=== PATIENT | female | born 1935 | race Caucasian/White ===

== ENCOUNTER 2017-05-05 09:17 | Emergency (ER) | payer MEDICARE, BC ==
[2017-05-05] MEDS ORDERED: NS 0.9% 1000 ML* 1,000 ML IV ONE (09:53)
--- NOTE | 2017-05-05 10:24 | RAD ---
HISTORY: Near syncope COMPARISONS: None TECHNIQUE: Multiple contiguous axial CT scans were obtained of the head without intravenous contrast. FINDINGS: HEMORRHAGE/INFARCT: There is no hemorrhage or acute infarct. MASSES/SHIFT: There is no mass or shift. EXTRA-AXIAL SPACES: There are no extra-axial fluid collections. SULCI AND VENTRICLES: There is diffuse and proportional enlargement of the sulci and ventricles. 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 There is mild hypoattenuation of the periventricular and subcortical white matter. BRAINSTEM: There are no focal parenchymal abnormalities. CEREBELLUM: There are no focal parenchymal abnormalities. VESSELS: The vessels are grossly normal. PARANASAL SINUSES: The paranasal sinuses are clear. ORBITS: The orbits are unremarkable. BONES AND SOFT TISSUE: No bone or soft tissue abnormalities are noted. OTHER: None IMPRESSION: NO ACUTE INTRACRANIAL PATHOLOGY. DIFFUSE INVOLUTIONAL CHANGE WITH CHRONIC SMALL VESSEL ISCHEMIC CHANGES.
--- NOTE | 2017-05-05 10:40 | RAD ---
HISTORY: Near syncope COMPARISONS: June 08, 2016 VIEWS: 4: Frontal dual-energy and lateral views of the chest. FINDINGS: CARDIOMEDIASTINAL SILHOUETTE: The cardiomediastinal silhouette is normal. LASHAWN: The lashawn are normal. PLEURA: The costophrenic angles are sharp. No pleural abnormalities are noted. LUNG PARENCHYMA: There is hyperinflation with flattening of the diaphragm and expansion of the AP diameter of the chest. ABDOMEN: The upper abdomen is clear. There is no subphrenic gas. BONES AND SOFT TISSUES: No bone or soft tissue abnormalities are noted. OTHER: None. IMPRESSION: NO ACTIVE CARDIOPULMONARY DISEASE.
[2017-05-05 10:49] LABS: Hematocrit 41 % (35-47); Hemoglobin 13.5 g/dl (12.0-16.0); Mean Corpuscular HGB Conc 33 g/dl (31-36); Mean Corpuscular Hemoglobin 31 pg (27-31); Mean Corpuscular Volume 93 fL (80-97); Mean Platelet Volume 12 um3 (7.4-10.4); Red Blood Count 4.38 10^6/ul (4.0-5.4); Red Cell Distribution Width 15 % (10.5-15); White Blood Count 6.6 10^3/ul (3.5-10.8)
[2017-05-05 11:09] LABS: Albumin 3.5 g/dL (3.2-5.2); BUN/Creatinine Ratio 18.8 (8-20); Calcium 9.4 mg/dL (8.6-10.3); EGFR African American 59.7 (>60); EGFR Non-African American 46.5 (>60); Globulin 3.2 g/dL (2-4); Magnesium 2.1 mg/dL (1.9-2.7); Potassium 4.1 mmol/L (3.5-5.0); Total Protein 6.7 g/dL (6.4-8.9)
[2017-05-05 11:10] LABS: B Type Natriuretic Peptide 156 pg/mL; Total Bilirubin 0.4 mg/dL (0.2-1.0)
[2017-05-05 11:49] LABS: TSH (Thyroid Stimulating Horm) 2.2 mcIU/mL (0.34-5.60)
[2017-05-05 13:05] VITALS: BP 123/75
--- NOTE | 2017-05-05 18:36 | ED ---
Sejal Gaming Alfonso, scribed for Fadi Ontiveros MD on 05/05/17 at 0955 . Dizziness - HPI Summary HPI Summary: This patient is an 81 year old F BIBA to [facility] accompanied by daughter with a chief complaint of lightheaded dizziness since this morning. The patient rates the pain 0/10 in severity. Symptoms aggravated by not having breakfast. Symptoms alleviated by rest. Patient reports nausea, unsteady gait, and near syncope (daughter states she just slouched down I held her the whole time.) Patient denies LOC, CP, palpitations, headache, and blurred vision. - History Of Current Complaint Chief Complaint: EDSyncope Stated Complaint: NEAR SYNCOPE Time Seen by Provider: 05/05/17 09:48 Hx Obtained From: Patient Timing: Constant Character: Lightheaded Aggravating Factor(s): Other - by not having breakfast. Alleviating Factor(s): Rest Associated Signs And Symptoms: Positive: Other: - nausea, unsteady gait, and near syncope (daughter states she just slouched down I held her the whole time. ) Patient denies LOC, CP, palpitations, headache, and blurred vision. - Allergies/Home Medications Allergies/Adverse Reactions: Allergies Allergy/AdvReac Type Severity Reaction Status Date / Time No Known Allergies Allergy Verified 04/20/17 14:09 Home Medications: Home Medications Apixaban* [Eliquis*] 2.5 mg PO BID 05/05/17 [History Confirmed 05/05/17] Aspirin EC Low Dose* [Ecotrin EC Low Dose 81 MG*] 81 mg PO DAILY 05/05/17 [ History Confirmed 05/05/17] Atorvastatin* [Lipitor*] 10 mg PO QPM 05/05/17 [History Confirmed 05/05/17] QUEtiapine TAB* [SEROquel TAB*] 200 mg PO BEDTIME 05/05/17 [History Confirmed ] cloNIDine TAB* [Catapres 0.1 MG TAB*] 0.1 mg PO QAM 05/05/17 [History Confirmed 05/05/17] cloNIDine TAB* [Catapres 0.1 MG TAB*] 0.2 mg PO BEDTIME 05/05/17 [History Confirmed 05/05/17] PMH/Surg Hx/FS Hx/Imm Hx Cardiovascular History: Reports: Hx Hypertension - IN PAST Sensory History: Denies: Hx Legally Blind Opthamlomology History: Denies: Hx Legally Blind EENT History: Denies: Hx Deafness Neurological History: Reports: Hx Dementia, Other Neuro Impairments/Disorders - Secaondary Parkinsonism - Surgical History Surgery Procedure, Year, and Place: goiter ,bunions Infectious Disease History: No Infectious Disease History: Denies: History Other Infectious Disease, Traveled Outside the [place] in Last 30 Days - Family History Known Family History: Positive: Hypertension - Social History Alcohol Use: None Hx Substance Use: No Substance Use Type: Reports: None Hx Tobacco Use: No Smoking Status (MU): Never Smoked Tobacco Have You Smoked in the Last Year: No Review of Systems Negative: Fever Negative: Blurred Vision Negative: Palpitations, Chest Pain Positive: Nausea Neurological: Other - Lightheaded dizziness, unsteady gait, and near syncope ( daughter states she just slouched down I held her the whole time.); Negative LOC, and headache All Other Systems Reviewed And Are Negative: Yes Physical Exam - Summary Physical Exam Summary: VITAL SIGNS: Reviewed. GENERAL: Patient is an elderly and nourished female who is lying comfortable in the stretcher. Patient is not in any acute respiratory distress. HEAD AND FACE: No signs of trauma. No ecchymosis, hematomas or skull depressions. No sinus tenderness. EYES: PERRLA, EOMI x 2, No injected conjunctiva, no nystagmus. EARS: Hearing grossly intact. Ear canals and tympanic membranes are within normal limits. MOUTH: Oropharynx within normal limits. NECK: Supple, trachea is midline, no adenopathy, no JVD, no carotid bruit, no c- spine tenderness, neck with full ROM. CHEST: Symmetric, no tenderness at palpation LUNGS: Clear to auscultation bilaterally. No wheezing or crackles. CVS: Regular rate and rhythm, S1 and S2 present, no murmurs or gallops appreciated. ABDOMEN: Soft, non-tender. No signs of distention. No rebound no guarding, and no masses palpated. Bowel sounds are normal. EXTREMITIES: FROM in all major joints, no edema, no cyanosis or clubbing. NEURO: Alert and oriented x 3. No acute neurological deficits. Speech is normal and follows commands. SKIN: Dry and warm Triage Information Reviewed: Yes Vital Signs On Initial Exam: Initial Vitals Temp Pulse Resp BP Pulse Ox 97.5 F 62 11 107/60 95 05/05/17 09:34 05/05/17 09:34 05/05/17 09:34 05/05/17 09:34 05/05/17 09:34 Vital Signs Reviewed: Yes - [place] Coma Scale Best Eye Response: 4 - Spontaneous Best Motor Response: 6 - Obeys Commands Best Verbal Response: 5 - Oriented Coma Scale Total: 15 Diagnostics - Vital Signs Vital Signs Temp Pulse Resp BP Pulse Ox 05/05/17 09:38 64 11 95 05/05/17 09:36 107/60 05/05/17 09:34 97.5 F 62 11 107/60 95 - Laboratory Lab Results: Lab Results 05/05/17 05/05/17 05/05/17 Range/Units 10:37 10:37 10:37 WBC 6.6 (3.5-10.8) 10^3/ul RBC 4.38 (4.0-5.4) 10^6/ul Hgb 13.5 (12.0-16.0) g/dl Hct 41 (35-47) % MCV 93 (80-97) fL MCH 31 (27-31) pg MCHC 33 (31-36) g/dl RDW 15 (10.5-15) % Plt Count 128 L (150-450) 10^3/ul MPV 12 H (7.4-10.4) um3 Neut % (Auto) 79.2 (38-83) % Lymph % (Auto) 13.8 L (25-47) % [place] % (Auto) 4.9 (1-9) % Eos % (Auto) 1.3 (0-6) % Baso % (Auto) 0.8 (0-2) % Absolute Neuts (auto) 5.2 (1.5-7.7) 10^3/ul Absolute Lymphs (auto) 0.9 L (1.0-4.8) 10^3/ul Absolute Monos (auto) 0.3 (0-0.8) 10^3/ul Absolute Eos (auto) 0.1 (0-0.6) 10^3/ul Absolute Basos (auto) 0.1 (0-0.2) 10^3/ul Absolute Nucleated RBC 0 10^3/ul Nucleated RBC % 0 Sodium 139 (133-145) mmol/L Potassium 4.1 (3.5-5.0) mmol/L Chloride 107 (101-111) mmol/L Carbon Dioxide 22 (22-32) mmol/L Anion Gap 10 (2-11) mmol/L BUN 21 (6-24) mg/dL Creatinine 1.12 H (0.51-0.95) mg/dL Est GFR ( Amer) 59.7 (>60) Est GFR (Non-Af Amer) 46.5 (>60) BUN/Creatinine Ratio 18.8 (8-20) Glucose 109 H (70-100) mg/dL Lactic Acid (0.5-2.0) mmol/L Calcium 9.4 (8.6-10.3) mg/dL Magnesium 2.1 (1.9-2.7) mg/dL Total Bilirubin 0.40 (0.2-1.0) mg/dL AST 18 (13-39) U/L ALT 11 (7-52) U/L Alkaline Phosphatase 96 (34-104) U/L Ammonia TNP Troponin I 0.00 (<0.04) ng/mL B-Natriuretic Peptide 156 H ( - 100) pg/mL Total Protein 6.7 (6.4-8.9) g/dL Albumin 3.5 (3.2-5.2) g/dL Globulin 3.2 (2-4) g/dL Albumin/Globulin Ratio 1.1 (1-3) TSH 2.20 (0.34-5.60) mcIU/mL 05/05/17 05/05/17 Range/Units 10:37 11:55 WBC (3.5-10.8) 10^3/ul RBC (4.0-5.4) 10^6/ul Hgb (12.0-16.0) g/dl Hct (35-47) % MCV (80-97) fL MCH (27-31) pg MCHC (31-36) g/dl RDW (10.5-15) % Plt Count (150-450) 10^3/ul MPV (7.4-10.4) um3 Neut % (Auto) (38-83) % Lymph % (Auto) (25-47) % [place] % (Auto) (1-9) % Eos % (Auto) (0-6) % Baso % (Auto) (0-2) % Absolute Neuts (auto) (1.5-7.7) 10^3/ul Absolute Lymphs (auto) (1.0-4.8) 10^3/ul Absolute Monos (auto) (0-0.8) 10^3/ul Absolute Eos (auto) (0-0.6) 10^3/ul Absolute Basos (auto) (0-0.2) 10^3/ul Absolute Nucleated RBC 10^3/ul Nucleated RBC % Sodium (133-145) mmol/L Potassium (3.5-5.0) mmol/L Chloride (101-111) mmol/L Carbon Dioxide (22-32) mmol/L Anion Gap (2-11) mmol/L BUN (6-24) mg/dL Creatinine (0.51-0.95) mg/dL Est GFR ( Amer) (>60) Est GFR (Non-Af Amer) (>60) BUN/Creatinine Ratio (8-20) Glucose (70-100) mg/dL Lactic Acid 2.6 H* (0.5-2.0) mmol/L Calcium (8.6-10.3) mg/dL Magnesium (1.9-2.7) mg/dL Total Bilirubin (0.2-1.0) mg/dL AST (13-39) U/L ALT (7-52) U/L Alkaline Phosphatase (34-104) U/L Ammonia 31 Troponin I (<0.04) ng/mL B-Natriuretic Peptide ( - 100) pg/mL Total Protein (6.4-8.9) g/dL Albumin (3.2-5.2) g/dL Globulin (2-4) g/dL Albumin/Globulin Ratio (1-3) TSH (0.34-5.60) mcIU/mL Result Diagrams: 05/05/17 10:37 05/05/17 10:37 Lab Statement: Any lab studies that have been ordered have been reviewed, and results considered in the medical decision making process. - Radiology CXR Radiology Interpretation Completed By: Radiologist - NO ACTIVE CARDIOPULMONARY DISEASE. ED physician has reviewed this radiology report and agrees. - CT Brain CT Interpretation Completed By: Radiologist - NO ACUTE INTRACRANIAL PATHOLOGY. DIFFUSE INVOLUTIONAL CHANGE WITH CHRONIC SMALL VESSEL ISCHEMIC CHANGES. ED physician has reviewed this radiology report and agrees. - EKG 1020 Cardiac Rate: Bradycardia EKG Rhythm: Sinus Bradycardia - BPM 57 EKG Interpretation: Low voltage, nml axis, and T wave inversions in V2-V6. Dizzy Course/Dx - Course Assessment/Plan: This patient is an 81 year old F BIBA to [facility] accompanied by daughter with a chief complaint of lightheaded dizziness since this morning. The patient rates the pain 0/10 in severity. Symptoms aggravated by not having breakfast. Symptoms alleviated by rest. Patient reports nausea, unsteady gait, and near syncope (daughter states she just slouched down I held her the whole time.) Patient denies LOC, CP, palpitations, headache, and blurred vision. An EKG reveals Sinus bradycardia at 57 BPM with Low voltage, nml axis, and T wave inversions in V2-V6. CXR reveals, per radiologist, NO ACTIVE CARDIOPULMONARY DISEASE. ED physician has reviewed this radiology report and agrees. CT Brain reveals, per radiologist, NO ACUTE INTRACRANIAL PATHOLOGY. DIFFUSE INVOLUTIONAL CHANGE WITH CHRONIC SMALL VESSEL ISCHEMIC CHANGES. ED physician has reviewed this radiology report and agrees. Test results with no significant abnormalities except for Creatinine of 1.1, lactic acid of 2.6, and BNP 156. In the ED course the patient was given IV fluids. The patient felt better, and was eating and drinking. The patient was ambulated and orthostatic vital signs were normal. I believe the symptoms are secondary to a vasovagal episode since she is feeling better and did not have LOC. Therefore, the patient will be discharged with follow up from PCP. The patient is agreeable with this plan. The patient is hemodynamically stable, alert and oriented x3. - Diagnoses Differential Diagnosis/HQI/PQRI: Benign Paroxysmal Positional Vertigo, CVA, Dysrhythmia, Medication Reaction, Transient Ischemic Attack, Vasovagal Reaction Provider Diagnoses: Near syncope, Fainting Discharge - Discharge Plan Condition: Stable Disposition: HOME Patient Education Materials: Near Syncope (ED) Referrals: Jordana Schroeder MD [Primary Care Provider] - 3 Days Additional Instructions: RETURN TO THE EMERGENCY DEPARTMENT FOR CHANGING OR WORSENING SYMPTOMS. The documentation as recorded by the Sejal aguilar Alfonso accurately reflects the service I personally performed and the decisions made by , Fadi Ontiveros MD.
== END 2017-05-05 13:20 | disposition home or self-care (01) ==
LOC: ED 09:17
DX: R55 Syncope and collapse (principal); R11.0 Nausea; R26.81 Unsteadiness on feet; I10 Essential (primary) hypertension; R00.1 Bradycardia, unspecified; Z79.82 Long term (current) use of aspirin
CPT/HCPCS: 36415; 70450; 71020; 80053; 82140; 83605; 83735; 83880; 84443; 84484; 85025; 93005; 96360; 99283

== ENCOUNTER 2017-08-08 09:54 | Emergency (ER) | payer MEDICARE, BC ==
--- OUTSIDE RECORDS SUMMARY | 2017-08-08 10:03 | XMS REPORT ---
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 SEE RESULT BELOW Name: NISREEN OSHEA : [address]: Ban Moe MD Acct: [id number] Unit: [id number] AGE: 80 Location: [facility] Re06/05/16 SEX: F Status: DEP ER SPEC: [id number] DANIEL: 06/05/16-[address] [facility] [address]: Charley Mcfarlane NP REQ: [id number] RECD: 06/05/16 STATUS: JUAN R DOTSON DR: Ban Schroeder MD _ SOURCE: URINE SPDESC: ORDERED: Urine Culture COMMENTS: [id number] Procedure Result Reported Site Urine Culture Final 06/06/16- 1703 ML No growth of clinically significant organisms * ML - MAIN LAB ([facility]) . END OF REPORT * ML=Testing performed at Main Lab DEPARTMENT OF PATHOLOGY, [address] [place] [id number] Giuseppe Newman M.D. Director [facility] # [id number] 26 Because ethnic data is not always readily available, this report includes an eGFR for both -Americans and non- Americans. The National Kidney Disease Education Program (NKDEP) does not endorse the use of the MDRD equation for patients that are not between the ages of 18 and 70, are , have extremes of body size, muscle mass, or nutritional status, or are non- or non-. According to the National Kidney Foundation, irrespective of diagnosis, the stage of the disease is based on the level of kidney function: Stage Description GFR(mL/min/1.73 m(2)) 1 Kidney damage with normal or decreased GFR 90 2 Kidney damage with mild decrease in GFR 60-89 3 Moderate decrease in GFR 30-59 4 Severe decrease in GFR 15-29 5 Kidney failure <15 (or dialysis) 27 Because ethnic data is not always readily available, this report includes an eGFR for both -Americans and non- Americans. The National Kidney Disease Education Program (NKDEP) does not endorse the use of the MDRD equation for patients that are not between the ages of 18 and 70, are , have extremes of body size, muscle mass, or nutritional status, or are non- or non-. According to the National Kidney Foundation, irrespective of diagnosis, the stage of the disease is based on the level of kidney function: Stage Description GFR(mL/min/1.73 m(2)) 1 Kidney damage with normal or decreased GFR 90 2 Kidney damage with mild decrease in GFR 60-89 3 Moderate decrease in GFR 30-59 4 Severe decrease in GFR 15-29 5 Kidney failure <15 (or dialysis) 28 ADDITIONAL INFORMATION This is a qualitative test. The TB antigen IU/mL value is required for documentation on certain government reporting forms (e.g., Form I-693), but this value should not be used to monitor disease progression or response to therapy. Diagnosing or excluding tuberculosis disease, and assessing the probability of LTBI, require a combination of epidemiological, historical, medical, and diagnostic findings that should be taken into account when interpreting QuantiFERON-TB results. Test Performed by: [place] [address] [employer] Charger: Chuck Ortega II, M.D., Ph.D. 29 ADDITIONAL INFORMATION This is a qualitative test. The TB antigen IU/mL value is required for documentation on certain government reporting forms (e.g., Form I-693), but this value should not be used to monitor disease progression or response to therapy. Diagnosing or excluding tuberculosis disease, and assessing the probability of LTBI, require a combination of epidemiological, historical, medical, and diagnostic findings that should be taken into account when interpreting QuantiFERON-TB results. Test Performed by: [place] [address] [employer]ger: Chuck Ortega II, M.D., Ph.D. 30 FASTING 12 HOUR 31 Desirable <150 Borderline high 150-199 High 200-499 Very High >500 32 Desirable <200 Borderline high 200-239 High >239 33 Low <40 Desirable: 40-60 High: >60 34 Desirable: <100 mg/dL Near Optimal: 100-129 mg/dL Borderline High: 130-159 mg/dL High: 160-189 mg/dL Very High: >189 mg/dL 35 Normal Range 180 to 914 Indeterminate Range 145 to 180 Deficient Range <145 36 FASTING 37 Because ethnic data is not always readily available, this report includes an eGFR for both -Americans and non- Americans. The National Kidney Disease Education Program (NKDEP) does not endorse the use of the MDRD equation for patients that are not between the ages of 18 and 70, are , have extremes of body size, muscle mass, or nutritional status, or are non- or non-. According to the National Kidney Foundation, irrespective of diagnosis, the stage of the disease is based on the level of kidney function: Stage Description GFR(mL/min/1.73 m(2)) 1 Kidney damage with normal or decreased GFR 90 2 Kidney damage with mild decrease in GFR 60-89 3 Moderate decrease in GFR 30-59 4 Severe decrease in GFR 15-29 5 Kidney failure <15 (or dialysis) 38 >100 to <200 pg/mL: likely compensated congestive heart failure (CHF) 200 to 400 pg/mL: likely moderate CHF >400 pg/mL: likely moderate to severe CHF 39 FASTING Procedures Date CPT Code Description Status 06/25/2017 14520 EKG Tracing & Interpretation Completed 06/03/2017 56122 EKG Tracing & Interpretation Completed 08/13/2016 74583 EKG Tracing & Interpretation Completed 11/22/2015 07197 EKG Tracing & Interpretation Completed 10/20/2015 62041 Treadmill Interp/Report Only Completed 10/20/2015 23891 Stress Test Supervsn W/Out I/R Completed 06/20/2015 69506 ECHO Transthoracic, Real-Time 2D With Doppler And Color Completed Flow 06/06/2015 18710 ECHO Stress Test Incl Perf Contiuous ekg Monitoring Completed W/Phys Superv 05/30/2015 31827 EKG Tracing & Interpretation Completed 08/16/2014 Mammogram Completed Encounters Type Date Location Provider CPT E/M Dx Office Visit 08/01/2017 10:00a [facility] [place] [address] F03.90 Z86.73 Office Visit 06/03/2017 9:00a [facility] Kodi Pearson, 33577 E78.00 M.DEyal R42 I10 I65.23 R00.1 I45.10 Office Visit 04/30/2017 8:30a [facility] Jodrana Schroeder, 43354 S80.11Prince Patricia M.D. Z23 Office Visit 01/14/2017 10:30a [facility] [place] [address] Z86.73 F03.90 Office Visit 08/13/2016 9:20a [facility] Kodi Pearson, 62984 F02.81 M.DEyal I10 E78.5 I63.9 Office Visit 07/24/2016 10:30a [facility] [place] [address] F03.90 Services [facility] Z86.73 Z79.01 Office Visit 06/09/2016 7:40a [facility] Marcial Pham, 54560 R50.9 Hospitalists Jesusita,FACP I10 Office Visit 06/08/2016 7:39a [facility], Sterling Henok, 49817 R50.9 Hospitalists N.PEyal E78.5 I10 Office Visit 05/27/2016 9:10a [facility] Jordana Schroeder M.D. 60356 E04.9 - [place] Z23 E53.8 R29.890 Z86.73 Z02.9 F03.90 Office Visit 01/25/2016 9:00a [facility] DORY Crockett 34491FTI I10 I70.213 E78.5 Office Visit 11/22/2015 11:00a [facility] Kodi Pearson M.D. 95602 I10 I70.213 F03.90 G47.9 M79.1 Office Visit 07/28/2015 9:30a [facility] [place] [address] F03.90 Z86.73 I65.22 Office Visit 07/26/2015 8:50a [facility] Jordana Schroeder, 26834 F03.90 - Ana Maria Mc Z79.899 Z02.9 Z13.820 Office Visit 05/30/2015 2:30p [facility] Kodi Pearson M.D. 98053 E78.5 I73.9 I35.0 I65.23 R06.02 I34.0 Office Visit 05/16/2015 1:00p [facility] [place] [address] F03.90 [facility] G21.9 I65.23 Z86.73 Office Visit 04/26/2015 9:50a [facility] Jordana Schroeder, 50133 Z86.73 - Ana Maria Mc G21.9 F02.80 E78.5 Z23 I35.1 Office Visit 03/30/2015 2:30p [facility] Jordana Schroeder M.D. 70942 F32.3 - [place] Plan of Care Future Appointment(s):08/14/2017 10:30 am - Nurse Visit cc at [facility]08/13/2017 12:00 pm - Nurse Visit cc at [facility]02/17/2018 9 :10 am - Jordana Schroeder M.D. at [facility] - Gofkhznzl14/16/2018 - April Cedeño MDF03.90 Unspecified dementia without behavioral disturbanceFollow up:: 6 MONTHS with KingRecommendations:The dementia is getting worse. I am glad she is not wandering out of the house or having any problems with her balance, but this can change in the future. I would recommend beginning to think about whether you are able to get more help in the home, or if you might need to think about a dementia care unit in the future.Z86.73 Prsnl hx of TIA ( TIA), and cereb infrc w/o resid deficitsRecommendations:Repeat blood pressure was 130/82 so better than when initially checked. Would consider getting a home blood pressure cuff and checking it at home since clonidine is changing.
[2017-08-08 10:48] LABS: ABS Basophils 0.1 10^3/ul (0-0.2); ABS Eosinophils 0.1 10^3/ul (0-0.6); ABS Lymphocytes 1.1 10^3/ul (1.0-4.8); ABS Monocytes 0.5 10^3/ul (0-0.8); ABS Neutrophils 5.2 10^3/ul (1.5-7.7); ABS Nucleated RBC 0 10^3/ul; Eosinophil % 1.2 % (0-6); Hematocrit 40 % (35-47); Hemoglobin 13.2 g/dl (12.0-16.0); Lymphocyte % 16.3 % (25-47); Mean Corpuscular HGB Conc 33 g/dl (31-36); Mean Corpuscular Hemoglobin 31 pg (27-31); Mean Corpuscular Volume 94 fL (80-97); Mean Platelet Volume 10 um3 (7.4-10.4); Nucleated Red Blood Cells % 0; Platelet Count 161 10^3/ul (150-450); Red Blood Count 4.28 10^6/ul (4.0-5.4); Red Cell Distribution Width 14 % (10.5-15)
[2017-08-08 11:02] LABS: EGFR Non-African American 42.1 (>60)
--- NOTE | 2017-08-08 12:32 | RAD ---
INDICATION: Syncope, anticoagulation. COMPARISON: Comparison is made with a prior CT of the brain from May 05, 2017. TECHNIQUE: Contiguous axial sections of the brain were obtained from the skull base to the vertex without contrast. FINDINGS: The ventricles, cisterns and sulci are enlarged consistent with diffuse atrophy. There are small areas of decreased density in the subcortical and periventricular white matter suggestive of mild chronic small vessel ischemic changes. There is no evidence for hemorrhage. No significant focal osseous abnormality is seen. The visualized portion of the paranasal sinuses and mastoid air cells appear clear. IMPRESSION: NO EVIDENCE FOR ACUTE INTRACRANIAL ABNORMALITY.
[2017-08-08 13:22] VITALS: BP 113/81
--- NOTE | 2017-08-08 20:26 | ED ---
Brian Gaming Stephanie, scribed for Zuleima Lee MD on 08/08/17 at 1122 . Syncope/Near Syncope - HPI Summary HPI Summary: The pt is an 81 y/o F BIBA to the ED with c/o syncopal episode that occurred at 10:09 today. The pt experienced LOC after the daughter gave the pt her evening medication instead of her morning medication at 07:00 today. Pt was given her atorvastatin 10mg that she takes at hs, Eliquis 2.5mg that she takes bid, and quetiapine 200mg that she takes at hs. The pt was at [facility] this morning when she lost consciousness. The pt is alert and oriented upon arrival. The pt is unaware if she experienced head trauma. The pt denies present CP, abd pain, SOB and LE pain. Pt feels back to normal. - History Of Current Complaint Chief Complaint: EDSyncope Time Seen by Provider: 08/08/17 11:36 Hx Obtained From: Patient, Family/Mental Retardation Nurse - daughter Onset/Duration: Sudden Onset - s/p taking the wrong medications, Lasting Hours, Resolved Timing: Intermittent Episode Lasting Context: Witnessed, Loss Of Consciousness Aggravating Factor(s): Other - incorrect medications Alleviating Factor(s): Nothing - Allergies/Home Medications Allergies/Adverse Reactions: Allergies Allergy/AdvReac Type Severity Reaction Status Date / Time No Known Allergies Allergy Verified 04/20/17 14:09 Home Medications: Home Medications Cholecalciferol TAB* [Vitamin D TAB*] 2,000 units PO DAILY 08/08/17 [History Confirmed 08/08/17] PMH/Surg Hx/FS Hx/Imm Hx Endocrine/Hematology History: Reports: Hx Thyroid Disease Cardiovascular History: Reports: Hx Hypertension - IN PAST Sensory History: Denies: Hx Legally Blind, Hx Deafness Opthamlomology History: Denies: Hx Legally Blind Neurological History: Reports: Hx Dementia, Other Neuro Impairments/Disorders - Secaondary Parkinsonism - Surgical History Surgery Procedure, Year, and Place: goiter ,bunions Infectious Disease History: No Infectious Disease History: Denies: History Other Infectious Disease, Traveled Outside the [place] in Last 30 Days - Family History Known Family History: Positive: Hypertension - Social History Alcohol Use: None Hx Substance Use: No Substance Use Type: Reports: None Hx Tobacco Use: No Smoking Status (MU): Never Smoked Tobacco Have You Smoked in the Last Year: No Review of Systems Negative: Fever Negative: Chest Pain Negative: Shortness Of Breath Negative: Abdominal Pain Positive: Other - Negative: LE pain All Other Systems Reviewed And Are Negative: Yes Physical Exam - Summary Physical Exam Summary: Appearance: Ill-appearing, moderate pain distress, Well-nourished Skin: Warm, color reflects adequate perfusion Head: Normal Head/Face inspection Eyes: Conjunctiva clear ENT: Normal inspection Neck: Supple, no nodes, no JVD. Respiratory: Lungs clear, Normal breath sounds, no respiratory distress Cardio: RRR, No murmur, pulses normal, brisk capillary refill Abdomen: soft, nontender Bowel sounds: present Musculoskeletal: Strength Intact/ ROM intact. No calf tenderness. No edema. Neuro: Alert, muscle tone normal, facial symmetry, speech normal, sensory/motor intact Psychological: Normal Triage Information Reviewed: Yes Vital Signs On Initial Exam: Initial Vitals BP 118/58 08/08/17 10:07 Vital Signs Reviewed: Yes Diagnostics - Vital Signs Vital Signs Temp Pulse Resp BP Pulse Ox 08/08/17 10:08 98.1 F 89 16 118/58 97 08/08/17 10:07 118/58 - Laboratory Lab Results: Lab Results 08/08/17 08/08/17 08/08/17 Range/Units 10:40 10:40 10:40 WBC 7.0 (3.5-10.8) 10^3/ul RBC 4.28 (4.0-5.4) 10^6/ul Hgb 13.2 (12.0-16.0) g/dl Hct 40 (35-47) % MCV 94 (80-97) fL MCH 31 (27-31) pg MCHC 33 (31-36) g/dl RDW 14 (10.5-15) % Plt Count 161 (150-450) 10^3/ul MPV 10 (7.4-10.4) um3 Neut % (Auto) 74.4 (38-83) % Lymph % (Auto) 16.3 L (25-47) % Garrett % (Auto) 6.9 (0-7) % Eos % (Auto) 1.2 (0-6) % Baso % (Auto) 1.2 (0-2) % Absolute Neuts (auto) 5.2 (1.5-7.7) 10^3/ul Absolute Lymphs (auto) 1.1 (1.0-4.8) 10^3/ul Absolute Monos (auto) 0.5 (0-0.8) 10^3/ul Absolute Eos (auto) 0.1 (0-0.6) 10^3/ul Absolute Basos (auto) 0.1 (0-0.2) 10^3/ul Absolute Nucleated RBC 0 10^3/ul Nucleated RBC % 0 Sodium 138 (133-145) mmol/L Potassium 4.0 (3.5-5.0) mmol/L Chloride 105 (101-111) mmol/L Carbon Dioxide 25 (22-32) mmol/L Anion Gap 8 (2-11) mmol/L BUN 21 (6-24) mg/dL Creatinine 1.22 H (0.51-0.95) mg/dL Est GFR ( Amer) 54.1 (>60) Est GFR (Non-Af Amer) 42.1 (>60) BUN/Creatinine Ratio 17.2 (8-20) Glucose 198 H (70-100) mg/dL Lactic Acid 2.8 H* (0.5-2.0) mmol/L Calcium 9.2 (8.6-10.3) mg/dL Magnesium 2.1 (1.9-2.7) mg/dL Total Bilirubin 0.30 (0.2-1.0) mg/dL AST 18 (13-39) U/L ALT 13 (7-52) U/L Alkaline Phosphatase 84 (34-104) U/L Troponin I 0.00 (<0.04) ng/mL Total Protein 6.5 (6.4-8.9) g/dL Albumin 3.6 (3.2-5.2) g/dL Globulin 2.9 (2-4) g/dL Albumin/Globulin Ratio 1.2 (1-3) TSH Pending Result Diagrams: 08/08/17 10:40 08/08/17 10:40 Lab Statement: Any lab studies that have been ordered have been reviewed, and results considered in the medical decision making process. - CT Brain CT Interpretation: No Acute Changes CT Interpretation Completed By: Radiologist - NO EVIDENCE FOR ACUTE INTRACRANIAL ABNORMALITY. - EKG 11:03 Cardiac Rate: NL EKG Rhythm: Sinus Rhythm - [address] Segment: Non-Specific Ectopy: None EKG Interpretation: nml AVIVCT, nml QTc, and neg axis (-34).NSSTwave changes. EKG Comparison: No Significant Change - from 05/05/17 Re-Evaluation - Re-Evaluation First Eval Re-Evaluation Time: 13:11 Change: Unchanged - ED discussed discharge instructions with pt and family who agree with the discharge plan. Course/Dx Course Of Treatment: ED physician will contact poison control to discuss adverse effects of medications ingested. At 12:51, ED physician spoke to poison control to discuss the plan of care of the pt. Poison control stated they would not sent the pt into the ED based on the medications taken. ED physician discussed the conversation with poison control with the family of the pt. Lactate of 2.7 was noted. - Diagnoses Provider Diagnoses: Accidental overdose Discharge - Discharge Plan Condition: Stable Disposition: HOME Patient Education Materials: Adult Overdose (ED) Referrals: Jordana Schroeder MD [Primary Care Provider] - 3 Days Additional Instructions: Skip Quetiapine tonight. Resume normally tomorrow (08/09/17). Skip atorvastatin tonight, resume on 08/09/17. RETURN TO ER FOR ANY NEW OR WORSENING SYMPTOMS The documentation as recorded by the Brian aguilar Stephanie accurately reflects the service I personally performed and the decisions made by , Zuleima eLe MD.
== END 2017-08-08 13:27 | disposition home or self-care (01) ==
LOC: ED 09:54
DX: T45.511A Poisoning by anticoagulants, accidental (unintentional), initial encounter (principal); T43.591A Poisoning by other antipsychotics and neuroleptics, accidental (unintentional), initial encounter; T46.6X1A Poisoning by antihyperlipidemic and antiarteriosclerotic drugs, accidental (unintentional), initial encounter; Y92.129 Unspecified place in nursing home as the place of occurrence of the external cause; I10 Essential (primary) hypertension; F03.90 Unspecified dementia, unspecified severity, without behavioral disturbance, psychotic disturbance, mood disturbance, and anxiety
CPT/HCPCS: 36415; 70450; 80053; 83605; 83735; 84443; 84484; 85025; 93005; 99282

== ENCOUNTER 2019-09-24 13:36 | Emergency (ER) | payer MEDICARE, BC ==
--- NOTE | 2019-09-24 13:47 | ED ---
Syncope/Near Syncope - HPI Summary HPI Summary: 83 y/o F brought in by EMS from home where she lives with her daughter for syncope. Spoke w her daughter, Valorie. Per daughter, patient woke up around noon today, was doing OK. Had coffee and banana. Was watching TV, found her she was pale, eyes closed, minimally responsiveness. Daughter called EMS. This episode lasted until Fire and EMT came. BP was low (80s). Improved to 140s. Patient has no complaints now. No chest pain. No fall. Follows w Dr. Pearson. Hx carotid stenosis. Hx syncope and admission in April. Has an apt in [place] w vascular surgeon for possible surgery. - History Of Current Complaint Time Seen by Provider: 09/24/19 13:39 Hx Obtained From: Patient, Family/Balance Wheel Hand Filer - DAUGHTER Onset/Duration: Lasting Minutes, Resolved Timing: Constant Activity At Onset: At Rest Associated Head Trauma: No Associated Signs And Symptoms: Negative - chest pain - Allergies/Home Medications Allergies/Adverse Reactions: Allergies Allergy/AdvReac Type Severity Reaction Status Date / Time No Known Allergies Allergy Verified 04/20/17 14:09 Home Medications: Home Medications Cyanocobalamin TAB* [Vitamin B12 TAB*] 1,000 mcg PO DAILY 10/19/15 [History Confirmed 08/08/17] Apixaban* [Eliquis*] 2.5 mg PO BID 05/05/17 [History Confirmed 08/08/17] Aspirin EC TAB* [Ecotrin EC Low Dose 81 MG*] 81 mg PO DAILY 05/05/17 [History Confirmed 08/08/17] Atorvastatin* [Lipitor*] 10 mg PO QPM 05/05/17 [History Confirmed 08/08/17] QUEtiapine TAB* [SEROquel TAB*] 200 mg PO BEDTIME 05/05/17 [History Confirmed ] cloNIDine TAB* [Catapres 0.1 MG TAB*] 0.1 mg PO QAM 05/05/17 [History Confirmed 08/08/17] Cholecalciferol TAB* [Vitamin D TAB*] 2,000 units PO DAILY 08/08/17 [History Confirmed 08/08/17] PMH/Surg Hx/FS Hx/Imm Hx Endocrine/Hematology History: Reports: Hx Thyroid Disease Cardiovascular History: Reports: Hx Hypertension - IN PAST Neurological History: Reports: Hx Dementia, Other Neuro Impairments/Disorders - Secaondary Parkinsonism - Surgical History Surgery Procedure, Year, and Place: goiter, bunions Infectious Disease History: Denies: History Other Infectious Disease - Family History Known Family History: Positive: Hypertension - Social History Alcohol Use: None Hx Substance Use: No Substance Use Type: Reports: None Hx Tobacco Use: No Smoking Status (MU): Never Smoked Tobacco Have You Smoked in the Last Year: No Review of Systems Negative: Chest Pain Positive: Syncope All Other Systems Reviewed And Are Negative: Yes Physical Exam - Summary Physical Exam Summary: Constitutional: Well-developed, Well-nourished, Alert. (-) Distressed Skin: Warm, Dry HENT: Normocephalic; Atraumatic Eyes: Conjunctiva normal Neck: Musculoskeletal ROM normal neck. (-) JVD, (-) Stridor, (-) Nuchal rigidity Cardio: Rhythm regular, rate normal, Heart sounds normal; Intact distal pulses; Radial pulses are 2+ and symmetric. (-) Murmur Pulmonary/Chest wall: Effort normal. (-) Respiratory distress, (-) Wheezes, (-) Rales Abd: Soft, (-) tenderness, (-) Distension, (-) Guarding, (-) Rebound Musculoskeletal: (-) Edema Lymph: (-) Cervical adenopathy Neuro: Alert, Oriented x3 Psych: Mood and affect Normal Triage Information Reviewed: Yes Vital Signs Reviewed: Yes Procedures - Sedation Patient Received Moderate/Deep Sedation with Procedure: No Diagnostics - Laboratory Result Diagrams: 09/24/19 13:58 09/24/19 13:58 Lab Statement: Any lab studies that have been ordered have been reviewed, and results considered in the medical decision making process. - EKG 1400 Cardiac Rate: NL - 66 BPM EKG Rhythm: Sinus Rhythm EKG Comparison: No Significant Change - 08/08/17 Summary of EKG Findings: An EKG at 1400 reveals normal sinus rhythm 66 BPM. T wave inversions V1-V4. No change from 08/08/17. No STEMI. No acute changes. ED physician has reviewed and interpreted this EKG. Re-Evaluation - Re-Evaluation First Eval Re-Evaluation Time: 15:14 Change: Improved - patient ambulated without difficulty in the ED Course/Dx Course Of Treatment: 83 y/o F w hx carotid stenosis p/w near syncope/syncopal episode. - patient without complaints here. normal neuro exam. Hx syncope in Novemeber w similar symptoms, was admitted. Follows w cards. Already had 30 day cardiac monitoring that was unremarkable. Has follow up w vascular at [facility] for possible carotid thrombectomy. No CP. Trop normal. EKG unchanged. Ambulated safely in ED. Will dc to home w daughter. - Diagnoses Provider Diagnoses: Syncope - Physician Notifications Discussed Care of Patient With: Desmond Fernandez Time Discussed With Above Provider: 13:53 Instructed by Provider To: Other - totally occluded L carotid. Already had a month of rhythm monitoring w cardiology that was normal. Discharge ED - Sign-Out/Discharge Documenting (check all that apply): Patient Departure - Discharge Plan Condition: Stable Disposition: HOME Patient Education Materials: Syncope (ED) Referrals: Jordana Schroeder MD [Primary Care Provider] - Additional Instructions: You were seen in the emergency department for a syncopal episode. Your EKG and labs did not show a cause for this. We spoke w cardiology who recommends you follow up with your vascular surgeon in [place]. Please follow up with your primary care doctor in next 2-3 days and return to emergency department for chest pain, passing out, headaches worsening or concerning symptoms. It was a pleasure taking care of you today. - Billing Disposition and Condition Condition: STABLE Disposition: Home - Attestation Statements Document Initiated by Ericka: Yes Documenting Scribe: Jing Gamboa Provider For Whom Ericka is Documenting (Include Credential): Bennett Ledesma MD Scribe Attestation: I, Jing Gamboa, scribed for Bennett Ledesma MD on 09/24/19 at 1519. Scribe Documentation Reviewed: Yes Provider Attestation: The documentation as recorded by the Jing aguilar accurately reflects the service I personally performed and the decisions made by me, Bennett Ledesma MD Status of Scribe Document: Viewed
[2019-09-24 14:06] LABS: ABS Basophils 0.1 10^3/ul (0-0.2); ABS Eosinophils 0.2 10^3/ul (0-0.6); ABS Lymphocytes 1.8 10^3/ul (1.0-4.8); ABS Monocytes 0.4 10^3/ul (0-0.8); ABS Neutrophils 4.1 10^3/ul (1.5-7.7); Eosinophil % 2.8 %; Hematocrit 45 % (35-47); Hemoglobin 14.9 g/dL (12.0-16.0); Mean Corpuscular HGB Conc 33 g/dL (31-36); Mean Corpuscular Hemoglobin 31 pg (27-31); Mean Corpuscular Volume 93 fL (80-97); Mean Platelet Volume 9.7 fL (7.4-10.4); Nucleated Red Blood Cells % 0.1; Platelet Count 234 10^3/uL (150-450); Red Blood Count 4.86 10^6 /uL (3.70-4.87); Red Cell Distribution Width 14 % (10-15); White Blood Count 6.6 10^3/uL (3.5-10.8)
[2019-09-24 14:24] LABS: Albumin 3.7 g/dL (3.2-5.2); Albumin/Globulin Ratio 1.2 (1-3); BUN/Creatinine Ratio 12.1 (8-20); EGFR Non-African American 48.7 (>60); Globulin 3.1 g/dL (2-4); Potassium 4.3 mmol/L (3.5-5.0); Total Bilirubin 0.4 mg/dL (0.2-1.0); Total Protein 6.8 g/dL (6.4-8.9)
[2019-09-24 15:49] VITALS: BP 150/92
== END 2019-09-24 15:46 | disposition home or self-care (01) ==
LOC: ED 13:36
DX: R55 Syncope and collapse (principal); E03.9 Hypothyroidism, unspecified; I10 Essential (primary) hypertension; G20 Parkinson's disease; F02.80 Dementia in other diseases classified elsewhere, unspecified severity, without behavioral disturbance, psychotic disturbance, mood disturbance, and anxiety; Z79.01 Long term (current) use of anticoagulants; Z79.82 Long term (current) use of aspirin; Z79.899 Other long term (current) drug therapy
CPT/HCPCS: 36415; 80053; 84484; 85025; 99283

== ENCOUNTER 2020-01-23 21:59 | Inpatient (IN) ==
[2020-01-24 00:53] LABS: ALT 14 U/L (7-52); AST 26 U/L (13-39); Albumin 3.8 g/dL (3.2-5.2); Albumin/Globulin Ratio 1.1 (1-3); Alkaline Phosphatase 88 U/L (34-104); Anion Gap 10 mmol/L (2-11); BUN/Creatinine Ratio 15.6 (8-20); Blood Urea Nitrogen 15 mg/dL (6-24); CO2 Carbon Dioxide 22 mmol/L (22-32); Calcium 9.1 mg/dL (8.6-10.3); Chloride 103 mmol/L (101-111); EGFR African American 66.7 (>60); EGFR Non-African American 55.1 (>60); Globulin 3.5 g/dL (2-4); Glucose 150 mg/dL (70-100); Potassium 3.8 mmol/L (3.5-5.0); Sodium 135 mmol/L (135-145); Total Protein 7.3 g/dL (6.4-8.9)
[2020-01-24 00:56] LABS: Troponin I 0.36 ng/mL (<0.03)
[2020-01-24 01:01] LABS: ABS Basophils 0.1 10^3/ul (0-0.2); ABS Monocytes 0.9 10^3/ul (0-0.8); ABS Neutrophils 12.3 10^3/ul (1.5-7.7); Eosinophil % 0.1 %; Hematocrit 39 % (35-47); Hemoglobin 13.5 g/dL (12.0-16.0); Lymphocyte % 6.7 %; Mean Corpuscular HGB Conc 35 g/dL (31-36); Mean Corpuscular Hemoglobin 31 pg (27-31); Mean Corpuscular Volume 90 fL (80-97); Nucleated Red Blood Cells % 0.1; Red Blood Count 4.33 10^6 /uL (3.70-4.87); Red Cell Distribution Width 14 % (10-15); White Blood Count 14.2 10^3/uL (3.5-10.8)
[2020-01-24] MEDS ORDERED: Iodixanol (CONTRAST) 320 MG/ML 100 ML SDV IV ONE (01:38)
[2020-01-24 01:45] LABS: Mean Platelet Volume 9.4 fL (7.4-10.4); Platelet Count 141 10^3/uL (150-450)
[2020-01-24] MEDS ORDERED: Heparin DRIP 25,000 UNITS BAG 25,000 UNITS/500 ML BAG IV SCH (02:30)
[2020-01-24] MEDS ORDERED: Al Hydrox/Mg Hydrox/Simet LIQ 30 ML UDC PO PRN (02:55)
[2020-01-24] MEDS ORDERED: Ondansetron 4 mg VIAL 2 MG/ML 2 ml VIAL IV PRN (02:55)
[2020-01-24] MEDS ORDERED: Heparin 5000 UNITS/ML 1 mL VIAL IV SCH (03:00)
[2020-01-24 03:01] LABS: ABS Lymphocytes 1.3 10^3/ul (1.0-4.8); ABS Monocytes 0.9 10^3/ul (0-0.8); ABS Neutrophils 11.1 10^3/ul (1.5-7.7); Eosinophil % 0.1 %; Hematocrit 38 % (35-47); Lymphocyte % 9.5 %; Mean Corpuscular HGB Conc 34 g/dL (31-36); Mean Corpuscular Hemoglobin 31 pg (27-31); Mean Corpuscular Volume 90 fL (80-97); Mean Platelet Volume 10.2 fL (7.4-10.4); Platelet Count 131 10^3/uL (150-450); Red Blood Count 4.24 10^6 /uL (3.70-4.87); Red Cell Distribution Width 14 % (10-15); White Blood Count 13.3 10^3/uL (3.5-10.8)
[2020-01-24 03:10] LABS: Activated Partial Thrombo Time 26.7 seconds (26.0-38.0)
[2020-01-24 03:17] LABS: Blood Urea Nitrogen 15 mg/dL (6-24); EGFR African American 73.7 (>60); EGFR Non-African American 60.9 (>60)
[2020-01-24 03:23] LABS: Troponin I 0.36 ng/mL (<0.03)
[2020-01-24 03:56] LABS: INR 1.29 (0.82-1.09)
[2020-01-24 06:56] LABS: Troponin I 0.27 ng/mL (<0.03)
[2020-01-25 05:49] LABS: Hematocrit 35 % (35-47); Hemoglobin 12.1 g/dL (12.0-16.0); Mean Corpuscular HGB Conc 35 g/dL (31-36); Mean Corpuscular Hemoglobin 32 pg (27-31); Mean Corpuscular Volume 90 fL (80-97); Mean Platelet Volume 10.2 fL (7.4-10.4); Platelet Count 140 10^3/uL (150-450); Red Blood Count 3.82 10^6 /uL (3.70-4.87); Red Cell Distribution Width 14 % (10-15); White Blood Count 10.1 10^3/uL (3.5-10.8)
[2020-01-25 06:03] LABS: Calcium 8.6 mg/dL (8.6-10.3); EGFR African American 63.6 (>60); EGFR Non-African American 52.6 (>60)
[2020-01-25 11:35] VITALS: BP 116/60
== END 2020-01-25 16:45 | disposition home or self-care (01) | DRG 176 ==
LOC: MEDTELE 21:59 → ED 21:59 → MEDTELE 01-24 04:28
PROVIDERS: ADMIT Pediatrics; ATTEND Internal Medicine

== ENCOUNTER 2021-04-21 21:41 | Inpatient (IN) ==
[2021-04-21] MEDS ORDERED: Morphine 2 MG/ML SYRINGE IV ONE (22:10)
[2021-04-21] MEDS ORDERED: Ondansetron 4 mg VIAL 2 MG/ML 2 ml VIAL IV ONE (22:10)
[2021-04-21 22:50] LABS: Hematocrit 38 % (35-47); Hemoglobin 12.5 g/dL (12.0-16.0); Mean Corpuscular HGB Conc 33 g/dL (31-36); Mean Corpuscular Hemoglobin 30 pg (27-31); Mean Corpuscular Volume 93 fL (80-97); Red Blood Count 4.13 10^6 /uL (3.70-4.87); Red Cell Distribution Width 15 % (10-15); White Blood Count 17.5 10^3/uL (3.5-10.8)
[2021-04-21 22:56] LABS: Activated Partial Thrombo Time 27.3 seconds (26.0-38.0)
[2021-04-21 23:02] LABS: Albumin 3.6 g/dL (3.2-5.2); Albumin/Globulin Ratio 1.1 (1-3); Calcium 8.6 mg/dL (8.6-10.3); Globulin 3.2 g/dL (2-4); Potassium 4.1 mmol/L (3.5-5.0); Total Bilirubin 0.4 mg/dL (0.2-1.0); Total Protein 6.8 g/dL (6.4-8.9)
[2021-04-22 00:23] LABS: ABS Basophils 0.1 10^3/ul (0-0.2); ABS Lymphocytes 1.1 10^3/ul (1.0-4.8); ABS Monocytes 0.6 10^3/ul (0-0.8); ABS Neutrophils 15.7 10^3/ul (1.5-7.7); Eosinophil % 0.1 %; Lymphocyte % 6.4 %
[2021-04-22 00:31] LABS: Platelet Count Platelets clumped. 10^3/uL (150-450)
[2021-04-22] MEDS: Morphine 2 MG/ML SYRINGE IV PRN ×2 (01:20→05:57)
[2021-04-22] MEDS: Ondansetron 4 mg VIAL 2 MG/ML 2 ml VIAL IV PRN ×2 (01:20→12:54)
[2021-04-22 01:46] LABS: TSH Ultra Thyroid Stim Horm 2.96 mcIU/mL (0.34-5.60)
[2021-04-22] MEDS ORDERED: Enoxaparin 80 MG/0.8 ML SYR SUBCUT SCH (07:30)
[2021-04-22 08:21] LABS: ABS Lymphocytes 0.9 10^3/ul (1.0-4.8); ABS Monocytes 0.7 10^3/ul (0-0.8); ABS Neutrophils 12.6 10^3/ul (1.5-7.7); Hematocrit 36 % (35-47); Hemoglobin 11.8 g/dL (12.0-16.0); Lymphocyte % 6.6 %; Mean Corpuscular HGB Conc 33 g/dL (31-36); Mean Corpuscular Hemoglobin 30 pg (27-31); Mean Corpuscular Volume 92 fL (80-97); Mean Platelet Volume 9.7 fL (7.4-10.4); Platelet Count 258 10^3/uL (150-450); Red Blood Count 3.94 10^6 /uL (3.70-4.87); Red Cell Distribution Width 15 % (10-15); White Blood Count 14.2 10^3/uL (3.5-10.8)
[2021-04-22 08:37] LABS: Potassium 4.9 mmol/L (3.5-5.0)
[2021-04-22] MEDS ORDERED: Dextrose 50% Syringe 50 ml 25 GM/50 ML SYRINGE IV PUSH PRN (08:41)
[2021-04-22 09:43] LABS: Urine Appearance Cloudy; Urine Bilirubin Negative (Negative); Urine Blood 1+ (Negative); Urine Color Yellow; Urine Glucose Negative (Negative); Urine Ketones Trace (Negative); Urine Nitrite Negative (Negative); Urine Protein Negative (Negative); Urine Specific Gravity 1.016 (1.002-1.030); Urine Urobilinogen Negative (Negative)
[2021-04-22 09:56] LABS: Urine Bacteria Absent (Absent); Urine Red Blood Cell 1+(3-5/hpf) (Absent); Urine Squamous Epithelial Cell Present (Absent); Urine White Blood Cell 3+(>20/hpf) (Absent)
[2021-04-22] MEDS: Morphine ORAL.SOLN 10 mg 2 mg/ml UDC 5 ml (10 mg) PO PRN (10:01)
[2021-04-22] MEDS ORDERED: Lactated Ringers 500 ml BAG 500 ML IV ONE ×2 (10:16→17:03)
[2021-04-22] MEDS ORDERED: Lactated Ringers 1000 ml BAG 1,000 ML IV SCH ×2 (14:00→18:03)
[2021-04-23] MEDS: Lactated Ringers 1000 ml BAG 1,000 ML IV SCH ×2 (02:58→22:16)
[2021-04-23 05:14] LABS: Urine Creatinine Concentration 168.91 mg/dL; Urine Sodium Concentration < 18 mmol/L
[2021-04-23 06:04] LABS: Hematocrit 28 % (35-47); Hemoglobin 9.1 g/dL (12.0-16.0); Mean Corpuscular HGB Conc 33 g/dL (31-36); Mean Corpuscular Hemoglobin 30 pg (27-31); Mean Corpuscular Volume 92 fL (80-97); Mean Platelet Volume 11.3 fL (7.4-10.4); Platelet Count 148 10^3/uL (150-450); Red Blood Count 3.01 10^6 /uL (3.70-4.87); Red Cell Distribution Width 15 % (10-15); White Blood Count 11.5 10^3/uL (3.5-10.8)
[2021-04-23 06:19] LABS: INR 1.24 (0.86-1.15)
[2021-04-23 06:24] LABS: Albumin 3.1 g/dL (3.2-5.2); Albumin/Globulin Ratio 1.1 (1-3); Calcium 8.3 mg/dL (8.6-10.3); Globulin 2.7 g/dL (2-4); Potassium 4.6 mmol/L (3.5-5.0); Total Bilirubin 0.3 mg/dL (0.2-1.0); Total Protein 5.8 g/dL (6.4-8.9)
[2021-04-23 06:45] LABS: ABS Basophils 0.1 10^3/ul (0-0.2); ABS Lymphocytes 1.3 10^3/ul (1.0-4.8); ABS Monocytes 0.9 10^3/ul (0-0.8); ABS Neutrophils 9.1 10^3/ul (1.5-7.7); Eosinophil % 0.2 %; Lymphocyte % 11.7 %
[2021-04-23] MEDS ORDERED: fentaNYL 100 mcg/2 ml 50 MCG/ML VIAL ONE ×2 (11:06→13:10)
[2021-04-23] MEDS ORDERED: Ondansetron 4 mg VIAL 2 MG/ML 2 ml VIAL ONE (11:07)
[2021-04-23] MEDS ORDERED: Propofol 10 MG/ML 20 ML BTL ONE (11:07)
[2021-04-23] MEDS ORDERED: Dexamethasone IV 4 MG/ML VIAL 1 ml VIAL ONE (11:07)
[2021-04-23] MEDS ORDERED: Lidocaine 2% PF 5 ML VIAL ONE (11:07)
[2021-04-23] MEDS ORDERED: Phenylephrine IV 10 MG/ML 1 ml VIAL ONE (11:07)
[2021-04-23] MEDS ORDERED: Lidocaine 2% w/ EPI 1:200,000 MPF 20 ML SDV VIAL ONE (12:05)
[2021-04-23] MEDS ORDERED: Bupivacaine 0.5% SDV PF 30ML VIAL ONE (12:05)
[2021-04-23] MEDS ORDERED: ceFAZolin VIAL VIAL ONE (12:44)
[2021-04-23] MEDS ORDERED: fentaNYL 100 mcg/2 ml 50 MCG/ML VIAL IV PRN (13:11)
[2021-04-23] MEDS ORDERED: DiMENhydriNATE IV 50 mg/ml 1 ml VIAL IV PUSH PRN (13:11)
[2021-04-23] MEDS ORDERED: Naloxone 0.4 mg VIAL 0.4 mg/ml 1 ml VIAL IV PRN (13:11)
[2021-04-23] MEDS ORDERED: Acetaminophen IV 1 GM/100ML 100 ML IV PRN (13:11)
[2021-04-23] MEDS ORDERED: Ondansetron 4 mg VIAL 2 MG/ML 2 ml VIAL IV PRN (13:11)
[2021-04-23] MEDS ORDERED: HYDROmorphone 1 MG/1 ML SYRINGE IV PRN (13:11)
[2021-04-23 15:52] LABS: Rapid COVID-19 Molecular Undetected (Undetected)
[2021-04-23 18:01] LABS: Calcium 7.8 mg/dL (8.6-10.3); Potassium 4.7 mmol/L (3.5-5.0)
[2021-04-23] MEDS: ceFAZolin 1 GM X 3 DOSES POST-OP Q8H (AddVan) IVPB SCH (20:51)
[2021-04-24] MEDS: ceFAZolin 1 GM X 3 DOSES POST-OP Q8H (AddVan) IVPB SCH ×2 (04:58→12:34)
[2021-04-24] MEDS: Lactated Ringers 1000 ml BAG 1,000 ML IV SCH ×2 (05:21→15:21)
[2021-04-24 06:53] LABS: ABS Lymphocytes 0.8 10^3/ul (1.0-4.8); ABS Monocytes 0.6 10^3/ul (0-0.8); ABS Neutrophils 9.9 10^3/ul (1.5-7.7); Hematocrit 23 % (35-47); Hemoglobin 7.5 g/dL (12.0-16.0); Lymphocyte % 7.1 %; Mean Corpuscular HGB Conc 33 g/dL (31-36); Mean Corpuscular Hemoglobin 31 pg (27-31); Mean Corpuscular Volume 92 fL (80-97); Platelet Count 180 10^3/uL (150-450); Red Blood Count 2.47 10^6 /uL (3.70-4.87); Red Cell Distribution Width 14 % (10-15); White Blood Count 11.3 10^3/uL (3.5-10.8)
[2021-04-24 07:14] LABS: Potassium 4.3 mmol/L (3.5-5.0)
[2021-04-24] MEDS ORDERED: Pneumococcal Vac 23-Polyvalent IM ONE (09:00)
[2021-04-24] MEDS ORDERED: Flu vaccine *QUAD* 2021-22* 0.5 ML SYRINGE IM ONE (09:00)
[2021-04-24 12:17] LABS: INR 1.37 (0.86-1.15)
[2021-04-24] MEDS: Aspirin EC 81 mg TAB.EC (enteric coated) PO SCH (12:37)
[2021-04-25] MEDS: Lactated Ringers 1000 ml BAG 1,000 ML IV SCH (04:19)
[2021-04-25 07:18] LABS: ABS Lymphocytes 1.7 10^3/ul (1.0-4.8); ABS Monocytes 0.8 10^3/ul (0-0.8); ABS Neutrophils 8.4 10^3/ul (1.5-7.7); Eosinophil % 0.1 %; Hematocrit 27 % (35-47); Hemoglobin 9.1 g/dL (12.0-16.0); Lymphocyte % 15.9 %; Mean Corpuscular HGB Conc 33 g/dL (31-36); Mean Corpuscular Hemoglobin 31 pg (27-31); Mean Corpuscular Volume 92 fL (80-97); Nucleated Red Blood Cells % 0.2; Red Blood Count 2.94 10^6 /uL (3.70-4.87); Red Cell Distribution Width 15 % (10-15); White Blood Count 10.9 10^3/uL (3.5-10.8)
[2021-04-25 07:26] LABS: Calcium 7.8 mg/dL (8.6-10.3); Potassium 3.8 mmol/L (3.5-5.0)
[2021-04-25 07:55] LABS: Platelet Count Platelets clumped. 10^3/uL (150-450)
[2021-04-25 08:21] LABS: Mean Platelet Volume 9.9 fL (7.4-10.4); Platelet Count 179 10^3/uL (150-450)
[2021-04-25] MEDS: Aspirin EC 81 mg TAB.EC (enteric coated) PO SCH (08:38)
[2021-04-25] MEDS ORDERED: Senna TAB 8.6 mg TAB PO PRN (11:07)
[2021-04-25] MEDS ORDERED: Magnesium Hydroxide LIQ 30 ML UDC PO PRN (11:07)
[2021-04-25] MEDS: Magnesium Hydroxide LIQ 30 ML UDC PO SCH (19:50)
[2021-04-26 06:30] LABS: Hematocrit 27 % (35-47); Hemoglobin 9.2 g/dL (12.0-16.0); Mean Corpuscular HGB Conc 34 g/dL (31-36); Mean Corpuscular Hemoglobin 31 pg (27-31); Mean Corpuscular Volume 93 fL (80-97); Mean Platelet Volume 9.3 fL (7.4-10.4); Platelet Count 199 10^3/uL (150-450); Red Blood Count 2.94 10^6 /uL (3.70-4.87); Red Cell Distribution Width 15 % (10-15); White Blood Count 6.6 10^3/uL (3.5-10.8)
[2021-04-26] MEDS: Polyethylene Glycol 3350 17 GM PACKET PO PRN (08:13)
[2021-04-26] MEDS: Aspirin EC 81 mg TAB.EC (enteric coated) PO SCH (09:33)
[2021-04-26] MEDS: Magnesium Hydroxide LIQ 30 ML UDC PO SCH ×2 (09:33→20:39)
[2021-04-26] MEDS: Lactulose 30 ml UDC PO SCH ×2 (14:36→20:41)
[2021-04-27] MEDS: Aspirin EC 81 mg TAB.EC (enteric coated) PO SCH (09:00)
[2021-04-27] MEDS: Magnesium Hydroxide LIQ 30 ML UDC PO SCH ×2 (09:01→23:07)
[2021-04-27] MEDS: Lactulose 30 ml UDC PO SCH ×3 (09:01→23:07)
[2021-04-27 10:27] LABS: ABS Basophils 0.1 10^3/ul (0-0.2); ABS Eosinophils 0.2 10^3/ul (0-0.6); ABS Lymphocytes 1.1 10^3/ul (1.0-4.8); ABS Monocytes 0.4 10^3/ul (0-0.8); ABS Neutrophils 6.3 10^3/ul (1.5-7.7); Hematocrit 26 % (35-47); Hemoglobin 8.6 g/dL (12.0-16.0); Lymphocyte % 13.2 %; Mean Corpuscular HGB Conc 33 g/dL (31-36); Mean Corpuscular Hemoglobin 31 pg (27-31); Mean Corpuscular Volume 94 fL (80-97); Mean Platelet Volume 9.3 fL (7.4-10.4); Nucleated Red Blood Cells % 0.1; Platelet Count 217 10^3/uL (150-450); Red Cell Distribution Width 15 % (10-15); White Blood Count 8.1 10^3/uL (3.5-10.8)
[2021-04-27 10:37] LABS: Calcium 7.6 mg/dL (8.6-10.3)
[2021-04-27] MEDS: Morphine ORAL.SOLN 10 mg 2 mg/ml UDC 5 ml (10 mg) PO PRN (15:06)
[2021-04-28] MEDS: Morphine 2 MG/ML SYRINGE IV PRN (04:17)
[2021-04-28 08:17] LABS: ABS Basophils 0.1 10^3/ul (0-0.2); ABS Eosinophils 0.3 10^3/ul (0-0.6); ABS Monocytes 0.5 10^3/ul (0-0.8); ABS Neutrophils 8.4 10^3/ul (1.5-7.7); Hematocrit 27 % (35-47); Hemoglobin 9.1 g/dL (12.0-16.0); Lymphocyte % 9.5 %; Mean Corpuscular HGB Conc 33 g/dL (31-36); Mean Corpuscular Hemoglobin 31 pg (27-31); Mean Corpuscular Volume 94 fL (80-97); Mean Platelet Volume 10.3 fL (7.4-10.4); Platelet Count 158 10^3/uL (150-450); Red Blood Count 2.91 10^6 /uL (3.70-4.87); Red Cell Distribution Width 15 % (10-15); White Blood Count 10.2 10^3/uL (3.5-10.8)
[2021-04-28] MEDS: Aspirin EC 81 mg TAB.EC (enteric coated) PO SCH (08:18)
[2021-04-28] MEDS: Lactulose 30 ml UDC PO SCH ×3 (08:22→20:56)
[2021-04-28] MEDS: Magnesium Hydroxide LIQ 30 ML UDC PO SCH ×2 (08:23→20:56)
[2021-04-28 08:36] LABS: Calcium 7.9 mg/dL (8.6-10.3)
[2021-04-28] MEDS: Lactated Ringers 1000 ml BAG 1,000 ML IV SCH (18:28)
[2021-04-29] MEDS: Morphine 2 MG/ML SYRINGE IV PRN (02:11)
[2021-04-29] MEDS: Magnesium Hydroxide LIQ 30 ML UDC PO SCH ×2 (07:15→20:25)
[2021-04-29] MEDS: Lactulose 30 ml UDC PO SCH ×3 (08:58→20:24)
[2021-04-29] MEDS: Aspirin EC 81 mg TAB.EC (enteric coated) PO SCH (09:41)
[2021-04-30 05:58] LABS: Hematocrit 26 % (35-47); Hemoglobin 8.7 g/dL (12.0-16.0)
[2021-04-30] MEDS: Lactulose 30 ml UDC PO SCH ×2 (09:16→12:56)
[2021-04-30] MEDS: Magnesium Hydroxide LIQ 30 ML UDC PO SCH ×2 (09:17→22:24)
[2021-04-30] MEDS: Aspirin EC 81 mg TAB.EC (enteric coated) PO SCH (09:56)
[2021-04-30] MEDS: Morphine 2 MG/ML SYRINGE IV PRN (13:31)
[2021-04-30] MEDS ORDERED: COVID-19 VACCINE, MRNA(MODERNA) BOOSTER/PF 50 MCG/0.25 ML IM ONE (14:00)
[2021-05-01] MEDS: Morphine 2 MG/ML SYRINGE IV PRN ×3 (00:49→16:38)
[2021-05-01 06:54] LABS: Hematocrit 29 % (35-47); Hemoglobin 9.7 g/dL (12.0-16.0)
[2021-05-01 07:11] LABS: Calcium 8.4 mg/dL (8.6-10.3); Potassium 3.6 mmol/L (3.5-5.0)
[2021-05-01] MEDS: Aspirin EC 81 mg TAB.EC (enteric coated) PO SCH (08:18)
[2021-05-01] MEDS: Magnesium Hydroxide LIQ 30 ML UDC PO SCH (08:19)
[2021-05-01] MEDS: Polyethylene Glycol 3350 17 GM PACKET PO PRN (08:19)
[2021-05-01 12:17] VITALS: BP 141/79
[2021-05-01 12:29] LABS: Rapid COVID-19 Molecular Undetected (Undetected)
== END 2021-05-01 16:51 | disposition swing bed (61) | DRG 481 ==
LOC: ED 21:41 → SUATTDRO 04-22 00:08 → SSU 04-22 01:04
PROVIDERS: ADMIT Hospitalist; ATTEND Student in an Organized Health Care Education/Training Program

== ENCOUNTER 2021-05-01 13:26 | Inpatient (IN) ==
[2021-05-01] MEDS ORDERED: Magnesium Hydroxide LIQ 30 ML UDC PO PRN (13:45)
[2021-05-01] MEDS ORDERED: Senna TAB 8.6 mg TAB PO PRN (13:45)
[2021-05-01] MEDS ORDERED: Polyethylene Glycol 3350 17 GM PACKET PO PRN (13:45)
[2021-05-01] MEDS: Magnesium Hydroxide LIQ 30 ML UDC PO SCH (22:37)
[2021-05-02] MEDS: Magnesium Hydroxide LIQ 30 ML UDC PO SCH ×2 (09:11→22:12)
[2021-05-02] MEDS ORDERED: Lorazepam PYXIS KEY PRN (16:10)
[2021-05-02] MEDS ORDERED: LORazepam 2 mg VIAL 1 ml IV PUSH ONE (16:11)
[2021-05-03 07:27] VITALS: BP 104/50
[2021-05-03] MEDS: Magnesium Hydroxide LIQ 30 ML UDC PO SCH (08:55)
== END 2021-05-03 10:10 | DRG 561 ==
LOC: SSU 16:51
PROVIDERS: ADMIT Student in an Organized Health Care Education/Training Program; ATTEND Student in an Organized Health Care Education/Training Program

== ENCOUNTER 2021-05-28 13:13 | Inpatient (IN) ==
[2021-05-28 14:22] LABS: Albumin 3.4 g/dL (3.2-5.2); CO2 Carbon Dioxide 23 mmol/L (22-32); Calcium 9.4 mg/dL (8.6-10.3); Potassium 3.9 mmol/L (3.5-5.0)
[2021-05-28 14:28] LABS: ALT 10 U/L (7-52); AST 18 U/L (13-39); Albumin/Globulin Ratio 0.8 (1-3); Alkaline Phosphatase 136 U/L (35-149); Blood Urea Nitrogen 64 mg/dL (6-24); Globulin 4.5 g/dL (2-4); Glucose 124 mg/dL (70-100); Total Protein 7.9 g/dL (6.4-8.9); eGFR CKD-EPI 24.3 (>60)
[2021-05-28 14:32] LABS: ABS Monocytes 0.3 10^3/ul (0-0.8); ABS Neutrophils 9.1 10^3/ul (1.5-7.7); Eosinophil % 0.4 %; Hematocrit 44 % (35-47); Hemoglobin 13.6 g/dL (12.0-16.0); Lymphocyte % 9.9 %; Mean Corpuscular HGB Conc 31 g/dL (31-36); Mean Corpuscular Hemoglobin 30 pg (27-31); Mean Corpuscular Volume 99 fL (80-97); Mean Platelet Volume 11.7 fL (7.4-10.4); Nucleated Red Blood Cells % 0.2; Platelet Count 169 10^3/uL (150-450); Red Blood Count 4.48 10^6 /uL (3.70-4.87); Red Cell Distribution Width 20 % (10-15); White Blood Count 10.5 10^3/uL (3.5-10.8)
[2021-05-28 14:43] LABS: Chloride 131 mmol/L (101-111)
[2021-05-28 14:48] LABS: Anion Gap 13 mmol/L (2-11); Sodium 167 mmol/L (135-145)
[2021-05-28 14:49] LABS: Troponin I 0.04 ng/mL (<0.03)
[2021-05-28] MEDS ORDERED: Lactated Ringers 1000 ml BAG 1,000 ML IV ONE (14:55)
[2021-05-28 15:21] LABS: TSH Ultra Thyroid Stim Horm 1.62 mcIU/mL (0.34-5.60)
[2021-05-28 15:23] LABS: Free T4 0.92 ng/dL (0.61-1.12)
[2021-05-28] MEDS ORDERED: Ondansetron 4 mg VIAL 2 MG/ML 2 ml VIAL IV PRN (15:56)
[2021-05-28] MEDS ORDERED: Magnesium Hydroxide LIQ 30 ML UDC PO PRN (16:03)
[2021-05-28] MEDS ORDERED: Albuterol/Ipratropium NEB.SOL (2.5/0.5 MG) 3 ML NEB.SOLN INH PRN (16:03)
[2021-05-28] MEDS ORDERED: Polyethylene Glycol 3350 17 GM PACKET PO PRN (16:03)
[2021-05-28] MEDS ORDERED: Senna TAB 8.6 mg TAB PO PRN (16:03)
[2021-05-28] MEDS ORDERED: Methylnaltrexone SQ (NF) 12 MG/0.6 ML VIAL SUBCUT ONE (16:06)
[2021-05-28] MEDS ORDERED: STERILE WATER FOR INJECTION IV SCH (17:00)
[2021-05-28] MEDS ORDERED: SODIUM CHLORIDE IV SCH (17:00)
[2021-05-28] MEDS: [UNRECOGNIZED DRUG - OTHER] IV SCH (19:10)
[2021-05-28] MEDS: Aspirin EC 81 mg TAB.EC (enteric coated) PO SCH (23:43)
[2021-05-29] MEDS: [UNRECOGNIZED DRUG - OTHER] IV SCH ×4 (00:15→23:45)
[2021-05-29 06:39] LABS: ABS Basophils 0.1 10^3/ul (0-0.2); ABS Eosinophils 0.1 10^3/ul (0-0.6); ABS Lymphocytes 1.2 10^3/ul (1.0-4.8); ABS Monocytes 0.3 10^3/ul (0-0.8); ABS Neutrophils 6.4 10^3/ul (1.5-7.7); Eosinophil % 1.6 %; Hematocrit 35 % (35-47); Hemoglobin 11.2 g/dL (12.0-16.0); Lymphocyte % 15.1 %; Mean Corpuscular HGB Conc 32 g/dL (31-36); Mean Corpuscular Hemoglobin 31 pg (27-31); Mean Corpuscular Volume 95 fL (80-97); Mean Platelet Volume 13.2 fL (7.4-10.4); Nucleated Red Blood Cells % 0.2; Platelet Count 109 10^3/uL (150-450); Red Blood Count 3.64 10^6 /uL (3.70-4.87); Red Cell Distribution Width 18 % (10-15); White Blood Count 8.1 10^3/uL (3.5-10.8)
[2021-05-29 07:10] LABS: Calcium 8.3 mg/dL (8.6-10.3); Magnesium 2.6 mg/dL (1.9-2.7); Potassium 3.2 mmol/L (3.5-5.0); eGFR CKD-EPI 31.7 (>60)
[2021-05-29] MEDS ORDERED: Potassium Chloride LIQUID 20 MEQ/15 ML LIQUID PO ONE (07:51)
[2021-05-29] MEDS ORDERED: CMCS: Methylnaltrexone SQ (NF) 12 MG/0.6 ML VIAL SUBCUT ONE (09:00)
[2021-05-29] MEDS: Magnesium Hydroxide LIQ 30 ML UDC PO SCH ×2 (10:38→23:10)
[2021-05-29 13:19] LABS: Urine Appearance Turbid; Urine Bilirubin Negative (Negative); Urine Blood 2+ (Negative); Urine Color Amber; Urine Glucose Negative (Negative); Urine Ketones Negative (Negative); Urine Nitrite Positive (Negative); Urine Protein 1+(30 mg/dL) (Negative); Urine Specific Gravity 1.024 (1.002-1.030); Urine Urobilinogen Negative (Negative)
[2021-05-29 13:23] LABS: Urine Bacteria 1+ (Absent); Urine Red Blood Cell 3+(>10/hpf) (Absent); Urine White Blood Cell 3+(>20/hpf) (Absent)
[2021-05-29] MEDS: cefTRIAXone 1 gm/50 mL NS BAG 1 GM/50 ML BAG IVPB SCH (16:19)
[2021-05-29] MEDS: Senna TAB 8.6 mg TAB PO SCH (20:13)
[2021-05-29] MEDS: Aspirin EC 81 mg TAB.EC (enteric coated) PO SCH (20:14)
[2021-05-30] MEDS: [UNRECOGNIZED DRUG - OTHER] IV SCH ×2 (05:14→11:18)
[2021-05-30 05:54] LABS: ABS Eosinophils 0.3 10^3/ul (0-0.6); ABS Lymphocytes 1.4 10^3/ul (1.0-4.8); ABS Monocytes 0.2 10^3/ul (0-0.8); ABS Neutrophils 4.7 10^3/ul (1.5-7.7); Hematocrit 33 % (35-47); Hemoglobin 10.6 g/dL (12.0-16.0); Lymphocyte % 21.6 %; Mean Corpuscular HGB Conc 32 g/dL (31-36); Mean Corpuscular Hemoglobin 30 pg (27-31); Mean Corpuscular Volume 94 fL (80-97); Mean Platelet Volume 11.9 fL (7.4-10.4); Nucleated Red Blood Cells % 0.2; Platelet Count 94 10^3/uL (150-450); Red Blood Count 3.49 10^6 /uL (3.70-4.87); Red Cell Distribution Width 17 % (10-15); White Blood Count 6.5 10^3/uL (3.5-10.8)
[2021-05-30 06:09] LABS: Calcium 7.7 mg/dL (8.6-10.3); Magnesium 2.5 mg/dL (1.9-2.7); Potassium 2.9 mmol/L (3.5-5.0); eGFR CKD-EPI 47.1 (>60)
[2021-05-30] MEDS: Magnesium Hydroxide LIQ 30 ML UDC PO SCH ×2 (08:12→22:28)
[2021-05-30] MEDS ORDERED: Potassium Chloride LIQUID 20 MEQ/15 ML LIQUID PO ONE (14:09)
[2021-05-30] MEDS: cefTRIAXone 1 gm/50 mL NS BAG 1 GM/50 ML BAG IVPB SCH (15:06)
[2021-05-30] MEDS: KCL 10 MEQ/50 ML IVPREMIX 10 MEQ/50 ML BAG IV SCH ×4 (16:06→22:28)
[2021-05-30] MEDS: Senna TAB 8.6 mg TAB PO SCH (19:54)
[2021-05-30] MEDS ORDERED: Atropine 1% (ORAL/SL) 15 ML BTL SL PRN (19:54)
[2021-05-30] MEDS: Aspirin EC 81 mg TAB.EC (enteric coated) PO SCH (19:54)
[2021-05-30] MEDS: Morphine ORAL CONCENTRATE 5 MG/0.25 ML ORAL.SYRIN SL PRN (20:12)
[2021-05-30] MEDS ORDERED: Acetaminophen IV 1 GM/100ML 100 ML IV PRN (20:26)
[2021-05-30] MEDS ORDERED: Cefepime 2 GM in Dextrose 2 GM/50 ML BAG IV SCH (21:00)
[2021-05-31] MEDS ORDERED: LORazepam 2 mg VIAL 1 ml IV PUSH PRN ×2 (00:30→13:39)
[2021-05-31] MEDS ORDERED: Lorazepam PYXIS KEY PRN (00:30)
[2021-05-31] MEDS: Morphine ORAL CONCENTRATE 5 MG/0.25 ML ORAL.SYRIN SL PRN ×4 (05:13→23:43)
[2021-05-31] MEDS: Magnesium Hydroxide LIQ 30 ML UDC PO SCH (09:41)
[2021-05-31 11:29] VITALS: BP 121/49
[2021-05-31] MEDS ORDERED: Morphine 2 MG/ML SYRINGE IV PRN (13:34)
[2021-05-31] MEDS ORDERED: Morphine 2 MG/ML SYRINGE IV SCH (14:00)
[2021-06-01] MEDS: Morphine ORAL CONCENTRATE 5 MG/0.25 ML ORAL.SYRIN SL PRN (17:11)
[2021-06-02] MEDS: Morphine ORAL CONCENTRATE 5 MG/0.25 ML ORAL.SYRIN SL PRN ×2 (01:36→19:57)
[2021-06-02] MEDS: Atropine 1% (ORAL/SL) 15 ML BTL SL PRN (01:37)
[2021-06-03] MEDS: Morphine ORAL CONCENTRATE 5 MG/0.25 ML ORAL.SYRIN SL PRN (23:26)
[2021-06-04] MEDS: Morphine ORAL CONCENTRATE 5 MG/0.25 ML ORAL.SYRIN SL PRN (18:56)
[2021-06-05] MEDS: Morphine ORAL CONCENTRATE 5 MG/0.25 ML ORAL.SYRIN SL PRN ×5 (00:52→22:36)
[2021-06-06] MEDS: Morphine ORAL CONCENTRATE 5 MG/0.25 ML ORAL.SYRIN SL PRN ×3 (06:01→21:26)
[2021-06-07] MEDS: Morphine ORAL CONCENTRATE 5 MG/0.25 ML ORAL.SYRIN SL PRN ×8 (03:58→22:52)
[2021-06-07] MEDS ORDERED: Morphine ORAL.SOLN 10 mg 2 mg/ml UDC 5 ml (10 mg) PO ONE (12:55)
[2021-06-08] MEDS: Morphine ORAL CONCENTRATE 5 MG/0.25 ML ORAL.SYRIN SL PRN ×9 (01:05→23:17)
[2021-06-09] MEDS: Morphine ORAL CONCENTRATE 5 MG/0.25 ML ORAL.SYRIN SL PRN ×5 (01:25→18:24)
[2021-06-10] MEDS: Morphine ORAL CONCENTRATE 5 MG/0.25 ML ORAL.SYRIN SL PRN ×6 (04:56→23:28)
[2021-06-11] MEDS: Morphine ORAL CONCENTRATE 5 MG/0.25 ML ORAL.SYRIN SL PRN ×6 (04:00→23:49)
[2021-06-11] MEDS: Atropine 1% (ORAL/SL) 15 ML BTL SL PRN (23:40)
[2021-06-12] MEDS: Morphine ORAL CONCENTRATE 5 MG/0.25 ML ORAL.SYRIN SL PRN ×6 (01:48→22:20)
[2021-06-12] MEDS: Atropine 1% (ORAL/SL) 15 ML BTL SL PRN ×5 (01:49→22:19)
[2021-06-12] MEDS: Morphine ORAL CONCENTRATE 5 MG/0.25 ML ORAL.SYRIN SL SCH ×2 (14:18→19:33)
[2021-06-13] MEDS: Atropine 1% (ORAL/SL) 15 ML BTL SL PRN ×2 (01:02→03:10)
[2021-06-13] MEDS: Morphine ORAL CONCENTRATE 5 MG/0.25 ML ORAL.SYRIN SL SCH (03:10)
[2021-06-13] MEDS: Morphine ORAL CONCENTRATE 5 MG/0.25 ML ORAL.SYRIN SL PRN (04:52)
[2021-06-13] MEDS ORDERED: Morphine ORAL.SOLN 10 mg 2 mg/ml UDC 5 ml (10 mg) PO ONE (04:59)
== END 2021-06-13 05:21 | disposition expired | DRG 690 ==
LOC: ED 13:13 → SUATTDRO 15:56 → EDHOLD 15:56 → MED 17:37
PROVIDERS: ADMIT Internal Medicine; ATTEND Hospitalist